=== PATIENT | male | born 1990 | race Two or more races ===

== ENCOUNTER 2020-05-02 12:59 | Emergency (ER) | payer MEDICAID, OTHER ==
[~2020-05-02] VITALS: Ht 167.6 cm; Wt 86.2 kg
[2020-05-02 13:17] VITALS: BP 128/78
[2020-05-02] MEDS ORDERED: traMADol HCL 50 MG TAB PO ONE (14:45)
== END 2020-05-02 15:20 | disposition home or self-care (01) ==
LOC: ER 12:59
DX: K02.9 Dental caries, unspecified (principal); R51.9 Headache, unspecified